=== PATIENT | male | born 2000 | race Two or more races ===

== ENCOUNTER 2021-11-01 23:16 | Emergency (ER) | payer SELFPAY ==
[~2021-11-01] VITALS: Ht 170.2 cm; Wt 95.0 kg
[2021-11-01 23:53] LABS: COVID AG,FIA SOURCE NASOPHARYNGEAL
[2021-11-02] MEDS ORDERED: PENICILLIN G BENZATHINE LA 2,400,000 UNITS/4 ML SYRINGE IM ONE
[2021-11-02] MEDS ORDERED: KETOROLAC TROMETHAMINE 30 MG/ML VIAL IM ONE
[2021-11-02] MEDS ORDERED: ACETAMINOPHEN 500 MG TABLET PO ONE (00:30)
[2021-11-02 00:41] LABS: INFLUENZA TYPE A NEGATIVE FOR TYPE A (NEGATIVE); INFLUENZA TYPE B NEGATIVE FOR TYPE B (NEGATIVE)
[2021-11-02 01:08] VITALS: BP 128/69
== END 2021-11-02 01:20 | disposition home or self-care (01) ==
LOC: EMS 23:19
DX: J02.9 Acute pharyngitis, unspecified (principal); Z20.822 Contact with and (suspected) exposure to COVID-19
CPT/HCPCS: 99284; 87426; 87430; 87804; 96372; J0561; J1885